=== PATIENT | male | born 1965 | race American Indian/Alaskan Native ===

== ENCOUNTER 2017-07-09 15:42 | Emergency (ER) | payer MEDICAID ==
[2017-07-09 16:00] VITALS: BMI 34.9
[2017-07-09 16:08] VITALS: BP 125/75; PULSE 104; RESP 18; TEMP 98.5; O2SAT 98
--- NOTE | 2017-07-09 16:27 | C.PDOC ---
History Of Present Illness Patient BIBA for psychiatric evaluation. As per patient, he was in the park smoking, when he began to feel anxious and had a panick attack. He states he has psychiatric medications at home that he takes (seroquel), but he forgot to take them this morning. He is feeling anxious and stressed right now because he is under house arrest, has an ankle bracelet and is scared he is going to be taken to [facility]. Patient denies SI/HI or substance abuse. He has no physical complaints. Time Seen by Provider: 07/09/17 15:57 Chief Complaint (Nursing): Psychiatric Evaluation History Per: Patient, EMS History/Exam Limitations: no limitations Onset/Duration Of Symptoms: Unknown Current Symptoms Are (Timing): Better Severity: Mild Associated Symptoms: Anxiety. denies: Suicidal Thoughts, Suicidal Plan Past Medical History Reviewed: Historical Data, Nursing Documentation, Vital Signs Vital Signs: Last Vital Signs Temp 98.5 F 07/09/17 16:00 Pulse 104 H 07/09/17 16:00 Resp 18 07/09/17 16:00 BP 125/75 07/09/17 16:00 Pulse Ox 98 07/09/17 16:27 - Medical History PMH: Anxiety Family History: States: No Known Family Hx - Social History Hx Alcohol Use: Yes Hx Substance Use: Yes Review Of Systems Except As Marked, All Systems Reviewed And Found Negative. Cardiovascular: Negative for: Chest Pain Respiratory: Negative for: Shortness of Breath Gastrointestinal: Negative for: Nausea, Vomiting, Abdominal Pain, Diarrhea Psych: Positive for: Anxiety. Negative for: Suicidal ideation Physical Exam - Physical Exam Appears: Well, Non-toxic, Other (tearful and anxious) Head: Atraumatic, Normacephalic Eye(s): bilateral: Normal Inspection, PERRL, EOMI Oral Mucosa: Moist Cardiovascular: Rhythm Regular Respiratory: Normal Breath Sounds, No Rales, No Rhonchi, No Wheezing Gastrointestinal/Abdominal: Normal Exam, Bowel Sounds, Soft, No Tenderness Extremity: Normal ROM, No Tenderness, No Deformity, Other (LLE - ankle bracelet in place) Pulses: Left Dorsalis Pedis: Normal, Right Dorsalis Pedis: Normal Neurological/Psych: Oriented x3, Normal Speech, Normal Cognition Gait: Steady ED Course And Treatment O2 Sat by Pulse Oximetry: 98 (RA) Pulse Ox Interpretation: Normal Progress Note: Patient is AAOx3, ambulating normally and is clinically sober. He admits to anixety/panic disorder, but denies depression or current SI/HI. Will discharge patient home, instructed him to take his medications when he gets home and follow up with his psychiatrist within 1 week. He understands he should return to ED if he has any concerning symptoms. Disposition Counseled Patient/Family Regarding: Diagnosis, Need For Followup - Disposition Referrals: [facility] [Outside] Disposition: HOME/ ROUTINE Disposition Time: 16:30 Condition: STABLE Additional Instructions: FOLLOW UP WITH YOUR PSYCHIATRIST IN 1-2 DAYS TAKE YOUR MEDICATIONS WHEN YOU GET HOME RETURN TO ER IF YOU HAVE ANY CONCERNING SYMPTOMS Instructions: Anxiety (ED) Forms: [employer] (American) Print Language: NIGERIAN - POA Present On Arrival: None - Clinical Impression Clinical Impression: Panic attack
== END 2017-07-09 16:36 | disposition home or self-care (01) ==
LOC: C.ER 15:42
DX: F41.0 Panic disorder [episodic paroxysmal anxiety] (principal)